=== PATIENT | male | born 2000 | race Caucasian/White ===

== ENCOUNTER 2023-08-10 08:34 | Outpatient (CLI) | payer BC, OTHER, SELFPAY ==
--- NOTE | ~2023-08-10 | MR_ITS ---
EXAMINATION: MR knee LT wo con DATE: 08/10/2023 09:45 INDICATION: CHRONIC PAIN OF LT KNEE TECHNIQUE: Magnetic resonance imaging (MRI) of the left knee was performed without intravenous contra st. Sequences included axial PD-weighted FS FSE, coronal PD-weighted FSE and PD-weighted FS FSE, sagi ttal PD-weighted FSE, and sagittal T2-weighted FS FSE. COMPARISON: None. FINDINGS: Medial compartment: Meniscus intact. 1.6 x 1.2 cm osteochondral lesion with loose osteochondral and ossific fragments on the posterior medial aspect of the medial femoral condyle. Minimal subjacent marrow edema. Cartilage otherwise intact. Lateral compartment: Meniscus and cartilage intact. Patellofemoral compartment: Cartilage and retinacula intact. Ligaments and tendons: The ACL, PCL, MCL, and LCL are intact. Remaining flexor and extensor tendons are intact. Fluid: Moderate volume joint fluid. Osseous/other: No suspicious focal or diffuse marrow signal. IMPRESSION: 1.6 x 1.2 cm osteochondral lesion on the posterior medial aspect of the medial femoral condyle, with loose osteochondral fragments (stage III). Moderate left knee joint effusion. Reviewed, dictated and finalized at location [facility]
== END 2023-08-10 08:35 | disposition home or self-care (01) ==
PROVIDERS: Visit Provider Orthopaedic Surgery
DX: M25.462 Effusion, left knee (principal)
CPT/HCPCS: 73721